=== PATIENT | male | born 1950 | race American Indian/Alaskan Native ===

== ENCOUNTER 2017-02-10 10:09 | Emergency (ER) | payer MEDICARE, OTHER ==
[2017-02-10] MEDS ORDERED: TYLENOL PO ONE (12:25)
[2017-02-10] MEDS ORDERED: DILAUDID IV ONE (12:25)
[2017-02-10] MEDS ORDERED: TORADOL IV ONE (12:25)
--- NOTE | 2017-02-10 12:26 | Emergency Department Report ---
ED General Adult HPI - General Chief complaint: Back Pain/Injury Stated complaint: BACK PAIN Time Seen by Provider: 02/10/17 12:16 Source: patient, EMS (ems notes not available at time of chart dictation), RN notes reviewed Mode of arrival: Stretcher Limitations: Physical Limitation - History of Present Illness Initial comments: This is a 67-year-old male who is previously unknown to this provider. H and follows in the [facility]. Patient reports a past medical history of PTSD, hypertension, and probable radicular lumbar back pain. He is following up with an outpatient orthopedic surgeon by the name of Dr. Merritt, who has prescribed physical therapy, ibuprofen and a muscle relaxant. Social The patient presents to the ER with acute on chronic left paralumbar lower back pain, which radiates down to the left knee. He believes that he "threw my back out." The pain is sharp, it increases with palpation, range of motion, laying flat, and elevation of the left leg. There is no distal extremity weakness, there is no bladder or bowel retention or incontinence, there is no saddle anesthesia, there is no chest pain, there is no abdominal pain or shortness of breath. Patient reports that 4 days ago the symptoms were so intense that he thinks that he "passed out." He thinks this was just for seconds, he does not think he hit his head, there are no DVT or pulmonary most risk factors, and the patient is low risk by well' s criteria. -: Gradual, days(s) Location: back Radiation: extremity Quality: aching Consistency: intermittent Improves with: rest Worsens with: movement Associated Symptoms: syncope. denies: confusion, chest pain, cough, diaphoresis , fever/chills - Related Data Previous Rx's Medication Instructions Recorded Last Taken Type Acetaminophen [Tylenol Arthritis] 650 mg PO Q6HR PRN #30 tablet.er 02/10/17 Unknown Rx Ibuprofen [Motrin] 600 mg PO Q8H PRN #30 tablet 02/10/17 Unknown Rx Allergies Allergy/AdvReac Type Severity Reaction Status Date / Time No Known Allergies Allergy Unverified 02/10/17 10:26 ED Review of Systems ROS: Stated complaint: BACK PAIN Other details as noted in HPI Constitutional: malaise. denies: fever Eyes: denies: eye discharge ENT: denies: epistaxis Respiratory: denies: cough Cardiovascular: syncope. denies: chest pain Gastrointestinal: denies: abdominal pain Genitourinary: denies: dysuria Musculoskeletal: back pain Neurological: denies: weakness, numbness, paresthesias ED Past Medical Hx - Past Medical History Previous Medical History?: Yes Hx Hypertension: Yes Hx Psychiatric Treatment: Yes (PTSD) - Surgical History Past Surgical History?: No - Social History Smoking Status: Former Smoker Substance Use Type: None - Medications Home Medications: Home Medications Medication Instructions Recorded Confirmed Last Taken Type Acetaminophen [Tylenol Arthritis] 650 mg PO Q6HR PRN #30 tablet.er 02/10/17 Unknown Rx Ibuprofen [Motrin] 600 mg PO Q8H PRN #30 tablet 02/10/17 Unknown Rx ED Physical Exam - General Limitations: Physical Limitation General appearance: alert, in no apparent distress, other (the patient is sleeping in a stretcher. The patient and is not twisting around) - Head Head exam: Present: atraumatic, normocephalic - Eye Eye exam: Present: normal appearance, EOMI. Absent: nystagmus - ENT ENT exam: Present: normal exam, normal orophraynx, mucous membranes moist, normal external ear exam - Neck Neck exam: Present: normal inspection, full ROM - Respiratory Respiratory exam: Present: normal lung sounds bilaterally. Absent: respiratory distress, chest wall tenderness - Cardiovascular Cardiovascular Exam: Present: regular rate, normal rhythm, normal heart sounds. Absent: systolic murmur, diastolic murmur, rubs, gallop - GI/Abdominal GI/Abdominal exam: Present: soft, normal bowel sounds. Absent: distended, tenderness, guarding, rebound, rigid, pulsatile mass - Rectal Rectal exam: Present: deferred - Extremities Exam Extremities exam: Present: normal inspection, full ROM, normal capillary refill , other (the compartments are soft, there is no palpable cord, there is negative Homans sign, there is a positive left straight leg raise test, 5 out of 5 strength bilateral upper and lower extremities, sensation intact to light touch and pinprick upper and lower extremities, downgoing plantar reflexes upper and lower extremities, proprioception intact in the bilateral lower extremities.). Absent: pedal edema, joint swelling, calf tenderness - Back Exam Back exam: Present: normal inspection, full ROM, CVA tenderness (L), paraspinal tenderness - Neurological Exam Neurological exam: Present: alert, oriented X3, CN II-XII intact, other ( Extraocular movements intact. Tongue midline. No facial droop. Facial sensation intact to light touch in the V1, V2, V3 distribution bilaterally. 5 and 5 strength in 4 extremities.. Sensation is intact to light touch in 4 extremities.). Absent: motor sensory deficit - Psychiatric Psychiatric exam: Present: normal affect, normal mood - Skin Skin exam: Present: warm, dry, intact, normal color. Absent: rash ED Course Vital Signs 02/10/17 02/10/17 02/10/17 10:23 10:58 14:45 Temperature 98 F 98.3 F Pulse Rate 67 69 Respiratory 16 16 16 Rate Blood Pressure 170/90 Blood Pressure 139/72 [Right] O2 Sat by Pulse 100 100 100 Oximetry - Reevaluation(s) Reevaluation #1: 02/10/17 13:01 Differential diagnosis, including not limited to: Mechanical back pain, AAA, renal colic Assessment and plan: 67-year-old male with probable radicular back pain. He is afebrile with reassuring vital signs with the exception of hypertension. Patient has already been in the ER 4 hours and is not moving around. His pain appears to be primarily reproducible. His exam and history are not consistent with epidural compression syndrome. It is possible that the pain was so intense that he had a transient loss of consciousness, however we will obtain EKG, noncontrast CT scan abdomen and pelvis, patient medicated with hydromorphone and ketorolac. EKG is pending at this time. Reevaluation #2: 02/10/17 14:32 Patient feels much improved after ketorolac and hydromorphone. Patient able to ambulate without difficulty. EKG demonstrates nonspecific sinus arrhythmia. Patient can follow-up as an outpatient drilling assistant for this. He has been in the ER for hours and has not had any episodes of hemodynamic instability. Reevaluation #3: 02/10/17 15:50 Vital signs remained stable. The patient is speaking cellular phone. Reevaluation #4: 02/10/17 15:55 ct scan negative patient will be discharged patient is walking with a cane 02/11/17 15:04 ED Medical Decision Making - Lab Data Result diagrams: 02/10/17 12:56 02/10/17 12:56 Vital Signs 02/10/17 02/10/17 10:23 10:58 Temperature 98 F Pulse Rate 67 Respiratory 16 16 Rate Blood Pressure 170/90 O2 Sat by Pulse 100 100 Oximetry - EKG Data -: EKG Interpreted by Me - EKG Data 02/10/17 14:33 Normal sinus, 66 bpm, left axis deviation, borderline left anterior fascicular block, sinus arrhythmia, high left ventricular voltage, abnormal EKG, not morphologically consistent with ST elevation myocardial infarction - Radiology Data Radiology results: pending Critical care attestation.: If time is entered above; I have spent that time in minutes in the direct care of this critically ill patient, excluding procedure time. ED Disposition Clinical Impression: Back pain, Abnormal EKG Disposition: - TO HOME OR SELFCARE Is pt being admited?: No Does the pt Need Aspirin: No Condition: Stable Instructions: Lumbar Radiculopathy (ED) Additional Instructions: Rest and avoid heavy lifting. Avoid strenuous physical activity. Take the pain medications as needed/directed. Follow up with her primary care doctor, orthopedist or pain specialist within the next 7-10 days[address] not drive a car or operate motor vehicles until cleared to do so by either her primary care doctor or drilling assistant. EKG demonstrated nonspecific abnormalities. This needs to be followed up by your primary care doctor or drilling assistant within the recommended timeframe. Please return to the ER right away with new pain, worsened pain, migration of pain, fevers, chills, lethargy, irritability, projectile vomiting, confusion, change in mental status, inability to tolerate liquid feeds. Prescriptions: Acetaminophen [Tylenol Arthritis] 650 mg PO Q6HR PRN #30 tablet.er PRN Reason: Pain Ibuprofen [Motrin] 600 mg PO Q8H PRN #30 tablet PRN Reason: Pain Referrals: PRIMARY CAREMD [Primary Care Provider] - 3-5 Days [facility] [Provider Group] - 3-5 Days [facility] [Provider Group] - 3-5 Days ELIZABETH DE LA ROSA MD [Staff Physician] - 3-5 Days AARON JULIAN MD [Staff Physician] - 3-5 Days
[2017-02-10 13:15] LABS: Hematocrit 43.5 % (35.5-45.6); Mean Corpuscular HGB Conc 35 % (32-34); Mean Corpuscular Hemoglobin 32 pg (28-32); Mean Corpuscular Volume 93 fl (84-94); Platelet Count 201 K/mm3 (140-440); Red Blood Count 4.67 M/mm3 (3.65-5.03); Red Cell Distribution Width 13.3 % (13.2-15.2); White Blood Count 4.5 K/mm3 (4.5-11.0)
[2017-02-10 13:30] LABS: BUN/Creatinine Ratio 14; Blood Urea Nitrogen 11 mg/dL (9-20); Calcium 8.5 mg/dL (8.4-10.2); Carbon Dioxide 27 mmol/L (22-30); Creatine Kinase 224 units/L (55-170); Glucose 92 mg/dL (75-100)
[2017-02-10 13:31] LABS: Anion Gap 17 mmol/L; Chloride 100.8 mmol/L (98-107); Potassium 4.1 mmol/L (3.6-5.0); Sodium 141 mmol/L (137-145)
[2017-02-10 14:33] LABS: Bilirubin,Urine NEG (Negative); Blood,Urine NEG (Negative); Ketones,Urine TR mg/dL (Negative); Leukocyte Esterase,Urine NEG (Negative); Mucus,Urine FEW /HPF; Nitrite,Urine NEG (Negative); Sperm,Urine 1+ /HPF (NP); Urobilinogen,Urine < 2.0 mg/dL (<2.0)
[2017-02-10 14:46] VITALS: BP 139/72
--- NOTE | 2017-02-10 15:51 | Cat Scan Report ---
CT ABDOMEN PELVIS WITHOUT CONTRAST: HISTORY: Back pain. COMPARISON: none. TECHNIQUE: Helical CT in 1.25mm intervals without IV contrast. Sagittal and coronal reconstructions. FINDINGS: Lung bases: normal. Liver: normal. Biliary system: normal. Pancreas: normal. Spleen: normal. Kidneys/ureters/bladder: normal. Adrenal glands: normal. Aorta: normal. Intestines: normal. Appendix: normal. Pelvic viscera: normal. Musculoskeletal: Moderate degenerative disc disease is noted at L3-4, L4-5 and L5-S1. No bony lesion or fracture. IMPRESSION: Lumbar spondylosis. No acute process is noted in the abdomen or pelvis.
== END 2017-02-10 16:27 | disposition home or self-care (01) ==
LOC: ED 10:09
DX: M54.5 Low back pain (principal); G89.29 Other chronic pain; R55 Syncope and collapse; R94.31 Abnormal electrocardiogram [ECG] [EKG]; I10 Essential (primary) hypertension; F43.10 Post-traumatic stress disorder, unspecified; Z87.891 Personal history of nicotine dependence
CPT/HCPCS: 36415; 51701; 74176; 80048; 81001; 82550; 85027; 93005; 93010; 96374; 96375; 99285; J1170; J1885